=== PATIENT | female | born 1990 | race Caucasian/White ===

== ENCOUNTER → 2021-09-11 | Outpatient (CLI) | payer OTHER | LOC: M WHC 11:31 | PROVIDERS: ATTEND Obstetrics & Gynecology | DX: Z36.3 Encounter for antenatal screening for malformations (principal); Z3A.21 21 weeks gestation of pregnancy ==

== ENCOUNTER 2021-09-26 10:35 | Emergency (ER) | payer OTHER ==
[~2021-09-26] VITALS: Ht 157.5 cm; Wt 74.0 kg
[2021-09-26 10:36] VITALS: BP 126/82
[2021-09-26] MEDS ORDERED: ASPI81CH33 PO (11:06)
[2021-09-26] MEDS ORDERED: PROP80TA PO (11:06)
[2021-09-26] MEDS ORDERED: ALBUTEROL 90 MCG/ACT 8GM HFA INHALER INH ONE (12:00)
[2021-09-26] MEDS ORDERED: VENTAER INH (13:07)
== END 2021-09-26 13:21 | disposition home or self-care (01) ==
LOC: M ED 10:35
DX: J06.9 Acute upper respiratory infection, unspecified (principal); Z3A.24 24 weeks gestation of pregnancy

== ENCOUNTER → 2021-09-28 | Outpatient (CLI) | payer OTHER ==
[~2021-09-28] MED LIST: ASPI81CH33 PO; PROP80TA PO; VENTAER INH
== END ==
LOC: M RAD 16:08
PROVIDERS: ATTEND Obstetrics & Gynecology
DX: O36.8320 Maternal care for abnormalities of the fetal heart rate or rhythm, second trimester, not applicable or unspecified (principal); Z3A.23 23 weeks gestation of pregnancy

== ENCOUNTER 2021-10-01 16:38 | Outpatient (CLI) | payer OTHER ==
[~2021-10-01] VITALS: Ht 157.5 cm; Wt 72.8 kg
[2021-10-01 16:59] VITALS: BP 119/73
[2021-10-01 17:01] VITALS: BP 117/76
[2021-10-01] MEDS ORDERED: METOCLOPRAMIDE 10MG TAB PO ONE (17:15)
[2021-10-01] MEDS ORDERED: diphenhydrAMINE 25MG CAP PO ONE (17:15)
== END 2021-10-01 18:15 | disposition other institution (70) ==
LOC: M LDO 16:38
PROVIDERS: ATTEND Obstetrics & Gynecology
DX: O36.8320 Maternal care for abnormalities of the fetal heart rate or rhythm, second trimester, not applicable or unspecified (principal); Z3A.24 24 weeks gestation of pregnancy; O10.012 Pre-existing essential hypertension complicating pregnancy, second trimester
CPT/HCPCS: 59025; 76815; 76819; 76820; 87426; G0378; G0463

== ENCOUNTER → 2021-10-17 | Outpatient (CLI) | payer OTHER | LOC: M RAD 14:33 | PROVIDERS: ATTEND Obstetrics & Gynecology | DX: O36.8320 Maternal care for abnormalities of the fetal heart rate or rhythm, second trimester, not applicable or unspecified (principal) ==

== ENCOUNTER → 2021-10-29 | Outpatient (CLI) | payer OTHER | LOC: M RAD 09:17 | PROVIDERS: ATTEND Obstetrics & Gynecology | DX: Q24.6 Congenital heart block (principal) ==

== ENCOUNTER 2021-11-18 20:53 | Outpatient (CLI) | payer OTHER ==
[~2021-11-18] VITALS: Ht 154.9 cm; Wt 77.5 kg
[2021-11-18 21:45] LABS: APPEARANCE, URINE MANUAL CLEAR (CLEAR); BILIRUBIN, URINE MANUAL NEGATIVE (NEGATIVE); BLOOD URINE MANUAL POSITIVE (NEGATIVE); COLOR, URINE MANUAL LT YELLOW (YELLOW); GLUCOSE, URINE (UA) MANUAL NEGATIVE (NEGATIVE); KETONE, URINE MANUAL NEGATIVE (NEGATIVE); LEUKOCYTE ESTERASE, URINE MAN NEGATIVE (NEGATIVE); NITRITE, URINE MANUAL NEGATIVE (NEGATIVE); PROTEIN, URINE MANUAL NEGATIVE (NEGATIVE); SPECIFIC GRAVITY,URINE MANUAL 1.005 (1.002-1.035); UROBILINOGEN, URINE MANUAL NORMAL (NORMAL)
[2021-11-18 22:00] LABS: RBC, URINE 0-1 /hpf (0-3); SQUAMOUS EPITHELIAL CELL URINE SMALL AMOUNT /hpf (SMALL AMT)
[2021-11-18 22:01] LABS: BACTERIA, URINE LARGE AMOUNT; HYALINE CAST, URINE NONE SEEN /lpf (0-1)
[2021-11-18 22:15] VITALS: BP 134/89
== END 2021-11-18 23:39 | disposition home or self-care (01) ==
LOC: M LDO 20:53
PROVIDERS: ATTEND Obstetrics & Gynecology
DX: O26.893 Other specified pregnancy related conditions, third trimester (principal); R10.2 Pelvic and perineal pain; O99.413 Diseases of the circulatory system complicating pregnancy, third trimester; Z3A.31 31 weeks gestation of pregnancy; I44.1 Atrioventricular block, second degree; O10.013 Pre-existing essential hypertension complicating pregnancy, third trimester; Z79.82 Long term (current) use of aspirin
CPT/HCPCS: 59025; 76815; 76819; 76820; 81000; 87086; G0463